=== PATIENT | male | born 1970 | race Caucasian/White ===

== ENCOUNTER 2017-11-16 08:33 | Emergency (ER) | payer OTHER ==
[2017-11-16] MEDS ORDERED: IBUPROFEN 800 MG TAB PO ONE (08:50)
--- NOTE | 2017-11-16 08:50 | EDPHY ---
H & P Time Seen by Provider: 11/16/17 08:46 HPI/ROS: HPI: This is a 47-year-old male who presents with Chief Complaint: Burned at work on arms and face Location: Bilateral forearms and face Quality: Burn Duration: 45 min prior to arrival Signs and Symptoms: No difficulty breathing, no shortness of breath, no wheezing, no blistering, no nausea, no vision changes Timing: Acute Severity: [id number] Context: Patient works at [employer] and was unscrewing the lid of a refrigerant type coolant when it flashed back into his face and onto his forearms. Patient reports that he was not wearing gloves but was wearing safety goggles at the time along with a t-shirt and jeans. He complains of burning of his bilateral forearms and face. He denies any difficulty breathing or swallowing. No history of lung disease. He denies any ocular pain, ocular discharge, visual changes. Patient reports that his tetanus is up-to-date. He removed his clothing immediately but has not washed his skin. Modifying Factors: See above Comment: ROS: see HPI Constitutional: No fever, no chills, no weight loss Eyes: No blurred vision Respiratory: No shortness of breath, no cough Cardiovascular: No chest pain Gastrointestinal: No nausea, no vomiting, no diarrhea Genitourinary: No dysuria Extremities: No myalgias Neurologic: No weakness, no numbness Skin: No rashes Hematologic: No bruising, no bleeding MEDICAL/SURGICAL/SOCIAL HISTORY: Medical history: Generally healthy. Does not take any regular medications. Surgical history: Denies Social history: Employed. Family history noncontributory. CONSTITUTIONAL: Well-developed, well-nourished, middle-aged white male, awake and alert, no obvious distress HEENT: Atraumatic and normocephalic, PERRL, EOMI. Nares patent; no rhinorrhea; no singed nasal hairs. Tympanic membranes clear. Oropharynx clear, no exudate and moist pink mucosa. Airway patent. No lymphadenopathy. No meningismus. Cardiovascular: Normal S1/S2, regular rate, regular rhythm, without murmur rub or gallop. PULMONARY/CHEST: Symmetrical and nontender. Clear to auscultation bilaterally. Good air movement. No accessory muscle usage. ABDOMEN: Soft, nondistended, nontender, no rebound, no guarding, no peritoneal signs, no masses or organomegaly. No CVAT. EXTREMITIES: 2/2 pulses, strength 5/5, no deformities, no clubbing, no cyanosis or edema. NEUROLOGICAL: no focal neuro deficits. GCS 15. SKIN: Warm and dry, mild erythema noted to anterior bilateral forearms and face- no blistering approximately 4% BSA; no rash. Good capillary refill. Source: Patient Exam Limitations: No limitations - Personal History Current Tetanus/Diphtheria Vaccine: Yes Current Tetanus Diphtheria and Acellular Pertussis (TDAP): Yes Constitutional: Initial Vital Signs Temperature (C) 37.2 C 11/16/17 08:55 Heart Rate 100 11/16/17 08:55 Respiratory Rate 16 11/16/17 08:55 Blood Pressure 161/82 H 11/16/17 08:55 O2 Sat (%) 96 11/16/17 08:55 O2 Delivery Mode Room Air Allergies/Adverse Reactions: No Known Allergies Allergy (Unverified 11/16/17 09:02) Home Medications: Medication Instructions Recorded Abilify 11/16/17 Bacitracin Ophthalmic 1 mariam OP DAILY #8 gm 11/16/17 Bacitracin/Polymyxin B Sulfate 1 mariam TP DAILY #28 oint...g. 11/16/17 [Bacitracin-Polymyxin Ointment] Effexor Xr 11/16/17 HCTZ (*) 11/16/17 Medical Decision Making ED Course/Re-evaluation: Patient immediately placed into the decontamination shower. He was given ibuprofen and Percocet with adequate pain relief. His tetanus is up-to-date. There is no ocular/lung/nasal involvement. This appears to be 1st degree resendez with 4% BSA. BACITRACIN ointment applied ON THE SKIN OF THE ARMS AND FACE WELL AROUND THE EYES; Adaptic and clean sterile dressings placed. Verbal and written wound care instructions provided. PH=7. No signs of neurovascular compromise/tenting of skin/compartment syndrome/ extremities and joints examined above and below area of concern and are neurovascularly intact. This patient was seen under the supervision of my secondary supervising physician. I evaluated care for this patient independently. Discussed this patient with Dr. Malin who did not see the patient. Differential Diagnosis: Differential diagnosis includes but is not limited to 1st degree burn, second- degree burn, third-degree burn. - Data Points Medications Given: Discontinued Medications Ibuprofen (Motrin) 800 mg PO EDNOW ONE Stop: 11/16/17 08:51 Last Admin: 11/16/17 09:08 Dose: 800 mg Oxycodone/Acetaminophen (Percocet 5/325) 1 tab PO EDNOW ONE Stop: 11/16/17 08:54 Last Admin: 11/16/17 09:09 Dose: 1 tab Departure - Departure Disposition: Home, Routine, Self-Care Clinical Impression: Chemical burn of skin First degree burn of forearm Qualifiers: Encounter type: initial encounter Laterality: unspecified laterality Qualified Code(s): T22.119A - Burn of first degree of unspecified forearm, initial encounter First degree burn of face Qualifiers: Encounter type: initial encounter Qualified Code(s): T20.10XA - Burn of first degree of head, face, and neck, unspecified site, initial encounter Condition: Good Instructions: Antibacterial Combination (On the skin), Chemical Skin Burn (ED) Additional Instructions: Keep the dressings in place for 48 hours. After 48 hr; you may remove the dressings. Wash the burn sites daily with mild soap and water; then pat dry and apply topical antibiotic ointment daily until fully healed. Take Tylenol 650 mg every 4 hours and/or Ibuprofen 800 mg every 8 hours with food as needed for pain. Apply cool compresses for 30 minutes at a time; 2-3 times per day for the next 1 -2 days. Do not shave the hair on your face until all resendez have fully healed. Return to the ER immediately if you experience redness, red streaks, have fevers /chills, flu like symptoms, limited range of motion, or any other symptoms that concern you. Referrals: [facility],. [Clinic] - Follow Up Only If Needed Stand Alone Forms: Work Excuse Prescriptions: Bacitracin Ophthalmic 1 mariam OP DAILY #8 gm Bacitracin/Polymyxin B Sulfate [Bacitracin-Polymyxin Ointment] 1 mariam TP DAILY # 28 oint...g.
[2017-11-16] MEDS ORDERED: OXYCODONE/APAP 5/325 TAB PO ONE (08:53)
[2017-11-16 09:50] VITALS: BP 133/84
[2017-11-16] MEDS ORDERED: BACITRACIN OPHTHALMIC OINTMENT EACHEYE SCH (16:00)
== END 2017-11-16 09:50 | disposition home or self-care (01) ==
PROC: 2W29X4Z Dressing of Left Upper Extremity using Bandage (ICD-10-PCS; principal; 2017-11-16)
PROC: 2W28X4Z Dressing of Right Upper Extremity using Bandage (ICD-10-PCS; principal; 2017-11-16)
PROC: 2W21X4Z Dressing of Face using Bandage (ICD-10-PCS; principal; 2017-11-16)
DX: T20.10XA Burn of first degree of head, face, and neck, unspecified site, initial encounter (principal); T22.111A Burn of first degree of right forearm, initial encounter; T22.112A Burn of first degree of left forearm, initial encounter; T31.0 Burns involving less than 10% of body surface; Y27.9XXA Contact with unspecified hot objects, undetermined intent, initial encounter; Y92.69 Other specified industrial and construction area as the place of occurrence of the external cause; Y99.0 Civilian activity done for income or pay; Y93.89 Activity, other specified